=== PATIENT | female | born 1995 | race Caucasian/White ===

== ENCOUNTER 2022-02-13 10:54 | Outpatient (REF) | payer BC, SELFPAY ==
[2022-02-13 11:36] LABS: Hematocrit 43.1 % (37.0-47.0); Hemoglobin 14.6 g/dl (12.0-16.0); Mean Corpuscular HGB Conc 33.9 g/dl (31.0-35.0); Mean Corpuscular Hemoglobin 29.7 pg (27.0-33.0); Mean Corpuscular Volume 87.8 fL (80.0-98.0); Mean Platelet Volume 9.6 fL (9.4-12.3); Platelet Count 330 X10*3/uL (160-400); Red Blood Count 4.91 X10*6/uL (4.20-5.50); Red Cell Distribution Width 11.8 % (11.0-16.0); White Blood Count 6.7 X10*3/uL (4.8-10.8)
[2022-02-13 12:08] LABS: Alanine Aminotransferase 24 U/L (0-31); Albumin Level 4.4 g/dL (3.5-5.0); Alkaline Phosphatase 55 U/L (39-117); Anion Gap 13 (12-20); Aspartate Amino Transferase 17 U/L (5-31); Bilirubin Total 0.3 mg/dL (0.0-1.0); Blood Urea Nitrogen 11 mg/dL (9-16); Carbon Dioxide 24 mmol/L (22-29); Chloride 107 mmol/L (96-108); Estimated Glomerular Filt Rate > 60; Glucose Fasting 95 mg/dL (60-99); Potassium 4.9 mmol/L (3.3-5.1); Sodium 139 mmol/L (135-145); Total Protein 6.8 g/dL (6.5-8.0)
== END 2022-02-13 10:55 | disposition home or self-care (01) ==
LOC: HO.LAB 10:54
PROVIDERS: PCP Physician Assistant; Visit Provider Physician Assistant
DX: Z13.29 Encounter for screening for other suspected endocrine disorder (principal)
CPT/HCPCS: 36415; 80053; 84443; 85027

== ENCOUNTER 2022-09-30 08:47 | Outpatient (REF) | payer BC, SELFPAY ==
--- NOTE | ~2022-09-30 | XR_ITS ---
EXAMINATION: XR WRIST, LEFT XR HAND, LEFT CLINICAL INFORMATION: Pain COMPARISON: None available. TECHNIQUE: PA, lateral, and oblique views of the left wrist and PA, lateral, and oblique views of the left hand FINDINGS: LEFT WRIST: The bones and soft tissues are normal. No fracture. Alignment is anatomic. Joint spaces are maintained. No erosions or soft tissue calcifications. LEFT HAND: The bones and soft tissues are normal. No fracture. Alignment is anatomic. Joint spaces are maintained. No erosions or soft tissue calcifications. XR/XR hand wrist LT IMPRESSION: Normal left hand and wrist.
[2022-09-30 09:20] LABS: Hematocrit 44.3 % (37.0-47.0); Hemoglobin 14.8 g/dl (12.0-16.0); Mean Corpuscular HGB Conc 33.4 g/dl (31.0-35.0); Mean Corpuscular Hemoglobin 29.2 pg (27.0-33.0); Mean Corpuscular Volume 87.4 fL (80.0-98.0); Mean Platelet Volume 8.9 fL (9.4-12.3); Platelet Count 335 X10*3/uL (160-400); Red Blood Count 5.07 X10*6/uL (4.20-5.50); Red Cell Distribution Width 11.8 % (11.0-16.0); White Blood Count 8.4 X10*3/uL (4.8-10.8)
[2022-09-30 09:57] LABS: Alanine Aminotransferase 27 U/L (0-31); Albumin Level 4.4 g/dL (3.5-5.0); Alkaline Phosphatase 58 U/L (39-117); Anion Gap 10 (12-20); Aspartate Amino Transferase 17 U/L (5-31); Bilirubin Total 0.4 mg/dL (0.0-1.0); Blood Urea Nitrogen 10 mg/dL (9-16); Calcium 9.1 mg/dL (8.4-10.2); Carbon Dioxide 28 mmol/L (22-29); Chloride 108 mmol/L (96-108); Estimated Glomerular Filt Rate > 60; Glucose Fasting 84 mg/dL (60-99); Potassium 4.9 mmol/L (3.3-5.1); Sodium 141 mmol/L (135-145); Total Protein 6.7 g/dL (6.5-8.0)
== END 2022-09-30 08:48 | disposition home or self-care (01) ==
LOC: HO.LAB 08:47
PROVIDERS: PCP Physician Assistant; Visit Provider Physician Assistant
DX: Z13.29 Encounter for screening for other suspected endocrine disorder (principal); M77.8 Other enthesopathies, not elsewhere classified
CPT/HCPCS: 36415; 73110; 73130; 80053; 84443; 85027

== ENCOUNTER 2022-11-04 10:00 | Outpatient (RCR) | payer BC, SELFPAY ==
--- NOTE | 2022-10-02 07:57 | MHC.OT.EP ---
[address] [phone] Occupational Therapy Plan of Care Patient Name: Beverly Wood Date of Evaluation: 10/02/22 Diagnosis: Left wrist pain Pain Location: Pain free at rest 5/10 sharp/stabbing pain in left dorsal wrist Pressure/pain on volar wrist and sharp pain in dorsal wrist Pain Score: 5 Pain Scale Used: Numeric (0 - 10) Aggravating Factors: Pushing up, heavy lifting Alleviating Factors: No meds, trialed icing Assessment: 27 yo female w/ persistent left wrist pain over the past six months, saw PCP and x-ray was taken (still pending at this time) and advised to wear resting wrist orthosis. She has not purchased yet, but she has been referred to OT for continued assessment and management. On assessment, range and sensation are WFL, she does have decreased pass worker strength (35lb left versus 55lb right) and has pain w/ pushing up or with heavy pass worker. No significant laxity observed through testing, but signs and symptoms consistent w/ carpal strain. Frequency and Duration: The patient will be seen 2x/wk for 4 weeks Short Term Goals: Ind w/ Wrist Widget trial Ind w/ HEP Ind w/ use of heat/ice appropriately Physician Allergist Immunologist Goals: Pt to progress to modified piush-ups w/ ease while wearing wrist widget Left gross grasp >45lb Pt to demo B/L lift and carry 20lb w/ ease Pain free at night Treatment Plan: Therapeutic Exercise Therapeutic Activity Home Exercise Program Splinting Patient Education Desensitization/Sensory Re-ed ADL Training Ultrasound Iontophoresis Paraffin Fluidotherapy MHP Cold Packs Joint Mobilization Soft Tissue Mobilization Kinesiotaping Electronically Signed By: Comfort Bradford OTR/L CHT Please Sign and return to therapist. Thank you once again for your referral.
--- NOTE | 2022-11-04 10:47 | MHC.OT.DC ---
[address] [phone] F: [phone] Occupational Therapy Discharge Note Patient Name: Beverly Wood Provider: Rafa Rush Diagnosis: Left wrist pain Date of Surgery: Date of Evaluation: 10/02/22 Date of Discharge: 11/04/22 Treatments to Date: 7 Cancellations to Date: 0 No Shows to Date: 0 Discharge Status: Achieved Goals Improved Function Independent with HEP Discharge Summary: Improving pain. Low 3/10 4-5 times a day with Pt avoiding heavy lifting and pushing with her left hand as she is able. Significant increase in pain free profiler strength to WNL . She is following her with HEP and is independent in exercise and activity progression . Pt leaving for [facility] at the end of the month Goals met Electronically Signed By: Clary Mcconnell OT CHT CLT Reviewed/agree with student documentation: Therapist: Please Sign and return to therapist, thank you for your referral.
== END 2022-11-04 10:48 | disposition home or self-care (01) ==
LOC: HO.OT 10:00
PROVIDERS: PCP Physician Assistant; Visit Provider Physician Assistant
DX: M77.8 Other enthesopathies, not elsewhere classified (principal)
CPT/HCPCS: 29125; 97033; 97035; 97110; 97165; 97760

== ENCOUNTER 2023-06-22 07:55 | Outpatient (AMB) | payer BC, SELFPAY ==
[2023-06-22 08:07] VITALS: BP 110/70; PULSE 72; O2SAT 99; BMI 24.0
--- NOTE | 2023-06-22 08:07 | A.OFFPC_ITS ---
Vital Signs 06/22/23 08:07 Height 5 ft 2 in Weight 131 lb BMI 24.0 BP 110/70 Blood Pressure Location Lt brachial Position Sitting Pulse 72 Pulse Source Pulse Oximeter Pulse Oximetry (%) 99 Oxygen Delivery Method Room Air Intake Visit Reasons: Annual exam Intake Note: Patient here for an annual physical exam Outside Food Server Required: No Accompanied by: Self / Same As Patient Allergies No Known Allergies Allergy (Verified 06/22/23 08:13) Medication List - Last Reconciled 06/22/23 by Rafa Rush PA-C No Known Home Meds Tobacco use date assessed: 06/22/23 Dental Screening Dental Screen Date: 06/22/23 Did you have a dental visit in the last 12 months?: Yes Did you have a dental problem in the last 6 months where you did not have access to dental care?: No Was dental information given to patient?: Patient has dentist HPI Annual exam HPI Details Patient is a 28-year-old female here today for routine annual physical.? Patient has no significant past medical history. concerns--> none Depalletizer Operator: Sees DIRECTOR [facility] -has up-to-date Pap, has upcoming appointment 08/2023 Vaccines: UTD with FLu vaccine, UTD with COVID ( maderna), UTD Tdap PFSH Surgical History History of removal of skin mole Family History Family/Other No problems noted. Other Mental health disorder Social History Housing: House Alcohol intake: current Alcohol intake frequency: a few times a month Patient Tobacco Use Status: Never used Tobacco e-Cigarette/Vaping Use: Never Used Second Hand Smoke Exposure: No service: Yes Current occupational status: employed Current occupation: [employer] Current occupational exposures/hazards: No Cognitive needs: No Hearing needs: No Vision needs: No Questionnaire PHQ-9 Over the last 2 weeks, how often have you been bothered by any of the following problems? 1. Little interest or pleasure in doing things: not at all 2. Feeling down, depressed, or hopeless: not at all 3. Trouble falling or staying asleep, or sleeping too much: not at all 4. Feeling tired or having little energy: not at all 5. Poor appetite or overeating: not at all 6. Feeling bad about yourself - or that you are a failure or have let yourself or your family down: not at all 7. Trouble concentrating on things, such as reading the newspaper or watching television: not at all 8. Moving or speaking so slowly that other people could have noticed. Or the opposite - being so fidgety or restless that you have been moving around a lot more than usual: not at all 9. Thoughts that you would be better off or of hurting yourself in some way: not at all Total score: 0 Depression Screening Interpretation: Negative Depression Screening Done: Yes 26048 - PHQ-9 Billing: Yes Source: Developed by Drs. Donte Molina, [place] Ann, Yannick Hathaway and colleagues, with an educational gustavo from [employer]. Thrive Questionnaire Date Thrive assessed: 06/22/23 I am a: Patient What is your living situation today?: I have a steady place to live Within the past 12 months, did the food you bought not last and you didn't have the money to get more?: Never true Within the past 12 months, did you worry whether your food would run out before you got money to buy more?: Never true Do you have trouble paying for medicines?: No Do you have trouble getting transportation to medical appointments?: No Do you have trouble paying your heating and electricity bill?: No Do you have trouble taking care of your child, family member or friend?: No Do you have trouble with day-to-day activities such as bathing, preparing meals, shopping, managing finances, etc.?: No Are you currently unemployed and looking for a job?: No Are you interested in more education?: No Please select the resources that you would like help with: None Currently or been in a relationship where the following occur: no concerns reported AUDIT C Alcohol Use Questionnaire (AUDIT-C) 1. How often do you have a drink containing alcohol?: Monthly or less 2. How many drinks containing alcohol do you have on a typical day when you are drinking?: 1 or 2 3. How often do you have six or more drinks on one occasion?: Never Total Score: 1 CANDACE-7 AMB Questionnaire CANDACE-7 Date CANDACE - 7 assessed: 06/22/23 Feeling nervous, anxious, or on edge: 0 = Not at all Not being able to stop or control worryin = Not at all Worrying too much about different things: 0 = Not at all Trouble relaxin = Not at all Being so restless that it is hard to sit still: 0 = Not at all Becoming easily annoyed or irritable: 0 = Not at all Feeling afraid as if something awful might happen: 0 = Not at all Total CANDACE-7 score (0-4 normal; 5-9 mild; 10-14 moderate; 15-21 severe): 0 Source: Developed by Drs. Donte Molina, [place] Ann, Yannick Hathaway and colleagues, with an educational gustavo from [employer]. CANDACE-7 Assessment Billing CANDACE-7 Assessment Tool: CANDACE-7 Assessment 15544 Review of Systems Const Denies body aches, Denies chills, Denies excessive sweating, Denies fatigue, Denies fever(s) and Denies headache(s) Eyes Denies blurry vision ENT Denies dysphagia, Denies vertigo, Denies dizziness, Denies headache(s), Denies hearing loss and Denies tinnitus Card Denies chest pain, Denies chest pain with activity, Denies syncope, Denies irregular heart rhythm and Denies dyspnea Resp Denies chest congestion, Denies cough, Denies hemoptysis, Denies dyspnea and Denies wheezing GI Denies abdominal pain, Denies melena, Denies hematochezia, Denies coffee ground emesis, Denies dysphagia, Denies diarrhea, Denies nausea and Denies vomiting Denies urinary frequency, Denies dysuria, Denies urinary hesitancy and Denies urinary urgency Musc Denies arthralgias, Denies limited range of motion, Denies muscle cramps and Denies muscle weakness Skin/Breast Denies rash and Denies skin ulcer Neuro Denies Abnormal speech present, Denies confusion, Denies vertigo, Denies dizziness, Denies syncope, Denies headache(s), Denies memory loss and Denies seizure-like activity Psych Denies anxiety, Denies confusion, Denies depression, Denies memory loss, Denies panic attacks and Denies paranoia Endo Denies excessive sweating, Denies fatigue, Denies flushing, Denies polydipsia and Denies polyuria Aller/Immun Denies wheezing Physical exam (Primary Care) Vital Signs: Last Vital Signs Pulse 72 06/22/23 08:07 BP 110/70 06/22/23 08:07 Pulse Ox 99 06/22/23 08:07 Oxygen Delivery Method Room Air 06/22/23 08:07 BMI result Body Mass Index 24.0 Tobacco/Smoking Status: Tobacco use Status Tobacco use date assessed 06/22/23 06/22/23 08:13 Patient Tobacco Use Status Never used Tobacco 06/22/23 08:13 Tobacco use type 06/18/22 08:26 e-Cigarette/Vaping Use Never Used 06/22/23 08:13 PHQ-9: PHQ-9 Score PHQ-9: Total score 0 06/22/23 08:17 Depression Screening Interpretation: Negative Thrive Assessment: Date of Thrive Assessment Date Thrive assessed 06/22/23 06/22/23 08:13 Currently or been in a relationship where the following occur: no concerns reported Const General: cooperative, comfortable, no acute distress, alert and awake; No confusion Orientation/consciousness: oriented to person, oriented to place, patient oriented x3 and No confusion HENMT Head: Yes normocephalic Ears: external ears normal and TM's normal bilaterally Face and sinus: No sinus tenderness Mouth: Normal oral and palatal mucosa present and tongue normal Teeth and gingiva: dentition normal and gingiva normal Throat: Yes posterior oropharynx normal, Yes tonsils normal and Yes uvula midline Eyes Conjunctivae: conjunctivae normal Sclerae: sclerae normal Pupils: Equal, round and reactive pupils present EOM: EOMs intact bilaterally Direct Ophthalmoscopy: No no photophobia Neck Neck: Yes no lymphadenopathy, No tender and Yes no JVD Thyroid: Thyroid normal Carotids: no bruits Chest Chest palpation & inspection: no tenderness Resp Effort & Inspection: normal respiratory effort, no audible wheezes, not labored and no stridor Auscultation: no crackles, no rales, no rhonchi and no wheezes Cardio Jugular venous distension: no JVD Rate: regular rate, not bradycardic and not tachycardic Rhythm: regular rhythm Bruits: no carotid bruits Peripheral pulses: Peripheral pulses 2+ throughout GI Inspection: Yes normal to inspection, No abdominal wall ecchymosis and No visible herniation Palpation (GI): Soft to palpation, nontender, no guarding, not rigid and No hepatosplenomegaly present Auscultation: normoactive bowel sounds General: Yes no CVA tenderness Back/Spine/Pelvis Back: no CVA tenderness and No back tenderness Cervical Spine: cervical ROM normal Thoracic/Lumbar Spine: thoracic and lumbar spine normal to inspection, straight leg raise negative bilaterally, No thoraco-lumbar ROM limited and No lumbar spinal tenderness Skin Lesions: no lesions Rashes: no rashes Wounds: no wounds Neuro General: oriented to person, oriented to place, patient oriented x3, CN's II-XI intact bilaterally and No confusion Cranial nerves: Yes Equal, round and reactive pupils present and Yes Normal accommodation reflex present Cognition (Neuro): normal cognition Speech: No Abnormal speech present Gait exam (Neuro): Normal gait present Motor exam (neuro): 5/5 motor strength present throughout Extrem Right upper extremity: full ROM; no cyanosis Left upper extremity: full ROM; no cyanosis Right lower extremity: no edema Left lower extremity: no edema Psych Appearance: grossly normal Mental Status: mental status grossly normal Affect: normal affect Attitude: cooperative Thought process: Normal thought process present Assessment and Plan Assessment & Plan (1) Annual physical exam: Code(s): Z00.00 - Encounter for general adult medical examination without abnormal findings (2) Screening for diabetes mellitus (DM): Code(s): Z13.1 - Encounter for screening for diabetes mellitus Orders: Orders Comprehensive [place]. Panel Fast Today Z13.1 - Encounter for screening for diabetes mellitus Coding Level of Care Code Est Pt Prev Care 18-39y(99934) Diagnoses Annual physical exam Z00.00 Screening for diabetes mellitus (DM) Z13.1 Additional Codes CANDACE-7 Assessment Billing - CANDACE-7 Assessment Tool: CANDACE-7 Assessment 56006 ( [id number])
== END 2023-06-22 08:25 | disposition home or self-care (01) ==
PROVIDERS: Visit Provider Physician Assistant
DX: Z00.00 Encounter for general adult medical examination without abnormal findings (principal); Z13.1 Encounter for screening for diabetes mellitus
CPT/HCPCS: 99395

== ENCOUNTER 2023-10-04 17:08 | Outpatient (AMB) | payer OTHER, SELFPAY ==
[2023-10-04 17:11] VITALS: BP 112/68; PULSE 80; O2SAT 98; BMI 24.9
--- NOTE | 2023-10-04 17:11 | MHC.PC.OV ---
Vital Signs 10/04/23 17:11 Height 5 ft 2 in Weight 136 lb BMI 24.9 BP 112/68 Blood Pressure Location Lt brachial Position Sitting Pulse 80 Pulse Source Pulse Oximeter Pulse Oximetry (%) 98 Oxygen Delivery Method Room Air Intake Visit Reasons: Transfer Of Care from Dr. Rush ( referrals ) Automobile Travel Club Counselor Required: No Accompanied by: Self / Same As Patient Allergies No Known Allergies Allergy (Verified 10/04/23 17:23) Medication List - Last Reconciled 10/04/23 by Valentina Dykes MD No Known Home Meds Tobacco use date assessed: 10/04/23 Dental Screening Dental Screen Date: 10/04/23 Did you have a dental visit in the last 12 months?: Yes Did you have a dental problem in the last 6 months where you did not have access to dental care?: No Was dental information given to patient?: Patient has dentist HPI HPI Comments History of Present Illness Details This is a 28-year-old female that complains of multiple skin moles and used to see Dermatology for this matter and would like to reestablish with Dr. Razo. She also complains of left wrist pain that was present last year and it did improve but recently came back. This wrist pain is triggered by wrist extension. She has no other acute complaints. [facility] Surgical History History of removal of skin mole Family History Family/Other No problems noted. Other Mental health disorder Social History Housing: House Alcohol intake: current Alcohol intake frequency: a few times a month Patient Tobacco Use Status: Never used Tobacco e-Cigarette/Vaping Use: Never Used Second Hand Smoke Exposure: No service: Yes Current occupational status: employed Current occupation: [employer] Current occupational exposures/hazards: No Cognitive needs: No Hearing needs: No Vision needs: No Questionnaire PHQ-9 Over the last 2 weeks, how often have you been bothered by any of the following problems? 1. Little interest or pleasure in doing things: not at all 2. Feeling down, depressed, or hopeless: not at all 3. Trouble falling or staying asleep, or sleeping too much: not at all 4. Feeling tired or having little energy: not at all 5. Poor appetite or overeating: not at all 6. Feeling bad about yourself - or that you are a failure or have let yourself or your family down: not at all 7. Trouble concentrating on things, such as reading the newspaper or watching television: not at all 8. Moving or speaking so slowly that other people could have noticed. Or the opposite - being so fidgety or restless that you have been moving around a lot more than usual: not at all 9. Thoughts that you would be better off or of hurting yourself in some way: not at all Total score: 0 Depression Screening Interpretation: Negative Depression Screening Done: Yes 98181 - PHQ-9 Billing: Yes Source: Developed by Drs. Donte Molina, [place] Ann, Yannick Hathaway and colleagues, with an educational gustavo from [employer]. Thrive Questionnaire Date Thrive assessed: 10/04/23 I am a: Patient What is your living situation today?: I have a steady place to live Within the past 12 months, did the food you bought not last and you didn't have the money to get more?: Never true Within the past 12 months, did you worry whether your food would run out before you got money to buy more?: Never true Do you have trouble paying for medicines?: No Do you have trouble getting transportation to medical appointments?: No Do you have trouble paying your heating and electricity bill?: No Do you have trouble taking care of your child, family member or friend?: No Do you have trouble with day-to-day activities such as bathing, preparing meals, shopping, managing finances, etc.?: No Are you currently unemployed and looking for a job?: No Are you interested in more education?: No Please select the resources that you would like help with: None Currently or been in a relationship where the following occur: no concerns reported THRIVE Score: 0 AUDIT C Alcohol Use Questionnaire (AUDIT-C) 1. How often do you have a drink containing alcohol?: Monthly or less 2. How many drinks containing alcohol do you have on a typical day when you are drinking?: 1 or 2 3. How often do you have six or more drinks on one occasion?: Never Total Score: 1 Score Reviewed/Action Taken: No CANDACE-7 AMB Questionnaire CANDACE-7 Date CANDACE - 7 assessed: 06/22/23 Source: Developed by Drs. Donte Molina, [place] Ann, Yannick Hathaway and colleagues, with an educational gustavo from [employer]. Review of Systems Const All systems reviewed & are unremarkable except as noted in HPI and below Eyes Reports no additional complaints, Denies change in vision and Denies other visual disturbances Card Denies chest pain at rest, Denies chest pain with activity, Denies edema, Denies irregular heart rhythm, Denies claudication, Denies dyspnea, Denies dyspnea on exertion, Denies orthopnea, Denies paroxysmal nocturnal dyspnea and Denies slow heart rate Resp Denies cough, Denies dyspnea and Denies dyspnea on exertion Skin/Breast Reports lesions Physical exam (Primary Care) Vital Signs: Last Vital Signs Pulse 80 10/04/23 17:11 BP 112/68 10/04/23 17:11 Pulse Ox 98 10/04/23 17:11 Oxygen Delivery Method Room Air 10/04/23 17:11 BMI result Body Mass Index 24.9 Tobacco/Smoking Status: Tobacco use Status Tobacco use date assessed 10/04/23 10/04/23 17:14 Patient Tobacco Use Status Never used Tobacco 10/04/23 17:14 Tobacco use type 06/18/22 08:26 e-Cigarette/Vaping Use Never Used 10/04/23 17:14 PHQ-9: PHQ-9 Score PHQ-9: Total score 0 10/04/23 17:26 Depression Screening Interpretation: Negative Thrive Assessment: Date of Thrive Assessment Date Thrive assessed 10/04/23 10/04/23 17:14 Currently or been in a relationship where the following occur: no concerns reported Resp Effort & Inspection: normal respiratory effort Auscultation: clear to auscultation bilaterally Cardio Jugular venous distension: no JVD Rate: regular rate Rhythm: regular rhythm Heart sounds: S1 normal heart sound present and S2 normal heart sound present Skin Lesions: lesion noted Extrem General: Yes full ROM Assessment and Plan Assessment & Plan (1) Skin mole: Code(s): D22.9 - Melanocytic nevi, unspecified Plan: Referred to dermatology. (2) Left wrist pain: Code(s): M25.532 - Pain in left wrist Plan: Referred to Ortho. 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
== END 2023-10-04 17:35 | disposition home or self-care (01) ==
PROVIDERS: PCP Physician Assistant; Visit Provider Internal Medicine
DX: D22.9 Melanocytic nevi, unspecified (principal); M25.532 Pain in left wrist
CPT/HCPCS: 99213

== ENCOUNTER 2024-01-20 08:23 | Outpatient (AMB) | payer OTHER, SELFPAY ==
--- NOTE | 2024-01-20 08:26 | A.OFFVIS_ITS ---
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 Cintron. Patient states she has left wrist pain that has been present since last August last year. This wrist pain is triggered by wrist extension when pushing off chair, doing push ups, etc. Hand/wrist x-ray done . She was sent to OT for this but could not keep going due to insurance and her having to go to [place]. 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 She has been having some numbness and tingling in the morning but thinks it may be from her sleeping wrong. She was seen in [place] in December of 2023 by a doctor and a senior software engineer who both state she has a ganglion cyst. Patient expresses senior software engineer did not feel comfortable treating this due to placement. She has been avoiding activity that involved wrist extension to avoid pain. Denies recent injury. Pt brought in medical documentation from visits in [place]. Allergies No Known Allergies Allergy (Verified 01/20/24 08:37) Medication List - Last Reconciled 01/20/24 by Catina Davey MD No Known Home Meds HPI Comments Details: Thinks the pain is coming dorsal wrist where ganglion cyst is, especially when she pushes up from a chair. First noticed it 2 months ago. But pain started August 2022. Numbness when she wakes up, described as pins/needles, more the palmar. Visit note from dermatology - dx of ganglion cyst left radial dorsal wrist. US 12/28/23 - ganglion cyst 1.7cm over unspecified carpal joint of dorsal left wrist. [facility], [facility] Medical History (Updated 01/20/24 @ 08:54 by Catina Davey MD) Ganglion cyst of dorsum of left wrist Surgical History History of removal of skin mole Family History Family/Other No problems noted. 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 MSK: 1 cm ganglion cyst left dorsal wrist. Nontender to touch. Soft. No redness. No joint effusion noted. No deformity noted. No intrinsic hand weakness noted. No atrophy noted. Damari test negative. Carpal compression test negative. Tinel sign negative. Strength is 5/5 in all muscle groups tested. No increased tone noted. Neurological: Neurologic examination of the upper and lower extremities was nonfocal with intact sensation, muscle stretch reflexes and without focal motor deficits . Kuhn?s negative bilaterally. Gait is non-antalgic without loss of balance. Results Reviewed Results Reviewed: Ordering Physician: Rafa Rush PA-C Date of Service: 09/30/22 Procedure(s): XR hand wrist LT Accession Number(s): [id number] cc: Rafa Rush PA-C~ EXAMINATION: XR WRIST, LEFT XR HAND, LEFT CLINICAL INFORMATION: Pain COMPARISON: None available. TECHNIQUE: PA, lateral, and oblique views of the left wrist and PA, lateral, and oblique views of the left hand FINDINGS: LEFT WRIST: The bones and soft tissues are normal. No fracture. Alignment is anatomic. Joint spaces are maintained. No erosions or soft tissue calcifications. LEFT HAND: The bones and soft tissues are normal. No fracture. Alignment is anatomic. Joint spaces are maintained. No erosions or soft tissue calcifications. XR/XR hand wrist LT IMPRESSION: Normal left hand and wrist. I reviewed records from the following: Reviewed notes from [place] senior software engineer. Reviewed ultrasound results from [place]. See above. Assessment & Plan Assessment & Plan (1) Ganglion cyst of dorsum of left wrist: Code(s): M67.432 - Ganglion, left wrist Category: Medical (2) Numbness of left hand: Code(s): R20.0 - Anesthesia of skin Category: Medical Plan We will referred to Dr. Cortez for surgical management of ganglion cyst. Patient eager to proceed. We will schedule this month. As for hand numbness, she only has this when she wakes up in the morning. No cl inical signs of Carpal Tunnel Syndrome today. She has been wearing wrist splints at night except that sometimes it rubs on the ganglion cyst. Encouraged to still wear wrist splints at night as tolerated. If hand numbness persist or become more constant, we will consider EMG. Assessment and plan discussed with patient, and patient was agreeable. All questions were answered thoroughly. Catina Davey MD, SABINE Board Certified, [place] [employer] and Rehabilitation (ABPMR) Board Certified, [place] Board of Electrodiagnostic Medicine (ABEM) Coding Level of Care Code New Pt Level 4 (46233) Diagnoses Ganglion cyst of dorsum of left wrist M67.432 Numbness of left hand R20.0
== END 2024-01-20 08:58 | disposition home or self-care (01) ==
PROVIDERS: PCP Physician Assistant; Referring Provider Physician Assistant; Visit Provider Physical Medicine & Rehabilitation
DX: M67.432 Ganglion, left wrist (principal); R20.0 Anesthesia of skin
CPT/HCPCS: 99204

== ENCOUNTER → 2024-01-20 08:23 | Outpatient (BNVA) | payer OTHER, SELFPAY | PROVIDERS: PCP Physician Assistant; Visit Provider Physical Medicine & Rehabilitation | DX: M67.432 Ganglion, left wrist (principal); R20.0 Anesthesia of skin | CPT/HCPCS: 99202 ==

== ENCOUNTER 2024-02-08 15:13 | Outpatient (AMB) | payer OTHER, SELFPAY ==
[2024-02-08 15:24] VITALS: BMI 24.9
--- NOTE | 2024-02-08 15:24 | MHC.OFFVIS ---
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 Patient describes pain as uneasy while working without numbness and/or tingling. Patient shares that cyst has decreased in size, but has a popping sensation when wrist is over worked. Patient would like to discuss surgery today. 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 She complains of a mass on the dorsal aspect of her wrist, along with pain. She says she first noticed this in ~08/2022, with intermittent pain with use of her wrist. She says this mass has changed in size in the last few months, and has grown smaller in the last week She is unsure if she has popped this mass in the last few days while closing sa heavy drawer. She says she feels a painful popping sensation in her wrist when she hyperextends and places her wrist under load, such as doing a push-up or handstand. She says when she was in [place] the mass was ~2cm in diameter at its largest. 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 [facility] Medical History (Updated 01/20/24 @ 08:54 by Catina Davey MD) Ganglion cyst of dorsum of left wrist Surgical History History of removal of skin mole Family History Family/Other No problems noted. 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 Current occupational exposures/hazards: No Cognitive needs: No Hearing needs: No Vision needs: No Review of Systems Const All systems reviewed & are unremarkable except as noted in HPI and below Physical Exam Vital Signs: BMI result Body Mass Index 24.9 Const General: cooperative, healthy appearing and no acute distress Orientation/consciousness: patient oriented x3 HEENT Head: Yes normocephalic and Yes atraumatic Eyes EOM: EOMs intact bilaterally Resp Effort & Inspection: normal respiratory effort and able to speak in complete sentences Cardio Jugular venous distension: no JVD Skin General skin exam: turgor normal Rashes: no rashes Neuro General: patient oriented x3 Extrem Other: Evaluation of Left Upper Extremity: The patient is alert, oriented, and in no acute distress Neuro: Median, Ulnar, Radial nerves motor and sensory intact and sensation is normal to the tips of all digits Vascular: Cap refill brisk ROM: She can make a fist and extend all her digits No locking or catching Skin: No lacerations or abrasions. General: No Ecchymosis. No Erythema or evidence of infection. With her wrist in flexion, there is a palpable mass measuring ~4-5mm in diameter over the dorsal radial wrist, just radial to the capitate. This has decreased in size in the last week, and she may have ruptured this at home. It is barely visible or palpable. Radiographs: 3 views of the left wrist from 09/30/22 were reviewed by me today in clinic. they show no fractures, dislocations, or arthritic changes. Psych Appearance: grossly normal Affect: normal affect Attitude: cooperative Assessment & Plan Assessment & Plan (1) Ganglion cyst of dorsum of left wrist: Code(s): M67.432 - Ganglion, left wrist Category: Medical (2) Left wrist pain: Code(s): M25.532 - Pain in left wrist Category: Medical Plan Assessment & Plan: 1. Left dorsal wrist ganglion cyst With her wrist in flexion, measuring ~4-5mm in diameter over the dorsal radial wrist, just radial to the capitate I educated her about this condition I discussed operative and non-operative treatment options This has decreased in size in the last week, and she may have ruptured this at home I explained that the mass needs to be larger and visible in order to proceed with surgery, and currently it is too small to consider operative maagement If her symptoms increase in severity she can follow up to discuss treatment options She can follow up prn Scribed for Bhargavi Cortez MD by Jose Tomlinson, medical certification specialist, on 02/08/24 at 4:15 PM, EST. Coding Level of Care Code New Pt Level 3 (75713) Diagnoses Ganglion cyst of dorsum of left wrist M67.432 Left wrist pain M25.532
== END 2024-02-08 16:35 | disposition home or self-care (01) ==
PROVIDERS: PCP Physician Assistant; Visit Provider Orthopaedic Surgery
DX: M67.432 Ganglion, left wrist (principal); M25.532 Pain in left wrist
CPT/HCPCS: 99213

== ENCOUNTER → 2024-02-08 15:13 | Outpatient (BNVA) | payer OTHER, SELFPAY | PROVIDERS: PCP Physician Assistant; Visit Provider Orthopaedic Surgery | DX: M67.432 Ganglion, left wrist (principal); M25.532 Pain in left wrist | CPT/HCPCS: 99212 ==

== ENCOUNTER 2025-01-16 12:13 | Outpatient (AMB) | payer BC, SELFPAY ==
--- NOTE | 2025-01-16 12:28 | A.OFFPC_ITS ---
Vital Signs 01/16/25 12:29 Height 5 ft 2 in Weight 136 lb BMI 24.9 BP 116/60 Blood Pressure Location Lt brachial Position Sitting Intake Visit Reasons: annual exam Intake Note: Patient here for an annual physical exam Rn Hemodialysis Charge Required: No Accompanied by: Self / Same As Patient Allergies No Known Allergies Allergy (Verified 01/16/25 12:33) Medication List - Last Reconciled 01/16/25 by Valentina Dykes MD No Known Home Meds Tobacco use date assessed: 01/16/25 Dental Screening Dental Screen Date: 01/16/25 Did you have a dental visit in the last 12 months?: Yes Did you have a dental problem in the last 6 months where you did not have access to dental care?: No Was dental information given to patient?: Patient has dentist HPI HPI Comments History of Present Illness Details The patient is a 29-year-old female presenting for a physical exam. She denies any medical complaints and reports having received a vaccination in 2015, with another administered in 2022. Pap smear up-to-date. No acute complaints. [facility] Medical History Ganglion cyst of dorsum of left wrist Surgical History History of removal of skin mole Family History Family/Other No problems noted. Father No problems noted. Mother No problems noted. 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 1. Little interest or pleasure in doing things: not at all 2. Feeling down, depressed, or hopeless: not at all 3. Trouble falling or staying asleep, or sleeping too much: not at all 4. Feeling tired or having little energy: not at all 5. Poor appetite or overeating: not at all 6. Feeling bad about yourself - or that you are a failure or have let yourself or your family down: not at all 7. Trouble concentrating on things, such as reading the newspaper or watching television: not at all 8. Moving or speaking so slowly that other people could have noticed. Or the opposite - being so fidgety or restless that you have been moving around a lot more than usual: not at all 9. Thoughts that you would be better off or of hurting yourself in some way: not at all Total score: 0 Depression Screening Interpretation: Negative Depression Screening Done: Yes 69037 - PHQ-9 Billing: Yes Source: Developed by Drs. Donte Molina, [place] Ann, Yannick Hathaway and colleagues, with an educational gustavo from [employer]. Thrive Questionnaire Date Thrive assessed: 01/09/25 I am a: Patient What is your living situation today?: I have a steady place to live Within the past 12 months, did the food you bought not last and you didn't have the money to get more?: Never true Within the past 12 months, did you worry whether your food would run out before you got money to buy more?: Never true Do you have trouble paying for medicines?: No Do you have trouble getting transportation to medical appointments?: No Do you have trouble paying your heating and electricity bill?: No Do you have trouble taking care of your child, family member or friend?: No Do you have trouble with day-to-day activities such as bathing, preparing meals, shopping, managing finances, etc.?: No Are you currently unemployed and looking for a job?: No Are you interested in more education?: No Please select the resources that you would like help with: None Currently or been in a relationship where the following occur: No concerns reported THRIVE Score: 0 AUDIT C Alcohol Use Questionnaire (AUDIT-C) 1. How often do you have a drink containing alcohol?: Monthly or less 2. How many drinks containing alcohol do you have on a typical day when you are drinking?: 3 or 4 3. How often do you have six or more drinks on one occasion?: Never Total Score: 2 Score Reviewed/Action Taken: No CANDACE-7 AMB Questionnaire CANDACE-7 Date CANDACE - 7 assessed: 01/16/25 Feeling nervous, anxious, or on edge: 0 = Not at all Not being able to stop or control worryin = Not at all Worrying too much about different things: 0 = Not at all Trouble relaxin = Not at all Being so restless that it is hard to sit still: 0 = Not at all Becoming easily annoyed or irritable: 0 = Not at all Feeling afraid as if something awful might happen: 0 = Not at all Total CANDACE-7 score (0-4 normal; 5-9 mild; 10-14 moderate; 15-21 severe): 0 Source: Developed by Drs. Donte Molina, [place] Ann, Yannick Hathaway and colleagues, with an educational gustavo from [employer]. CANDACE-7 Assessment Billing CANDACE-7 Assessment Tool: CANDACE-7 Assessment 72065 Review of Systems Const All systems reviewed & are unremarkable except as noted in HPI and below Card Denies chest pain at rest, Denies chest pain with activity, Denies edema, Denies irregular heart rhythm, Denies claudication, Denies dyspnea, Denies dyspnea on exertion, Denies orthopnea, Denies paroxysmal nocturnal dyspnea and Denies slow heart rate Resp Denies cough, Denies dyspnea and Denies dyspnea on exertion GI Denies abdominal pain, Denies change in bowel habits, Denies excessive flatus, Denies nausea and Denies vomiting Physical exam (Primary Care) Vital Signs: Last Vital Signs BP 116/60 01/16/25 12:29 BMI result Body Mass Index 24.9 Tobacco/Smoking Status: Tobacco use Status Tobacco use date assessed 10/04/23 10/04/23 17:14 Patient Tobacco Use Status Never used Tobacco 01/20/24 08:38 Tobacco use type 06/18/22 08:26 e-Cigarette/Vaping Use Never Used 01/20/24 08:38 Depression Screening Interpretation: Negative Thrive Assessment: Date of Thrive Assessment Date Thrive assessed 01/09/25 01/09/25 13:10 Currently or been in a relationship where the following occur: No concerns reported HENMT Head: Yes normal to inspection, Yes normocephalic and Yes atraumatic Ears: external ears normal Eyes General: appearance normal, both eyes and all related structures Eyelids: Yes eyelids normal Conjunctivae: conjunctivae normal Neck Neck: Yes normal visual inspection and Yes supple Resp Effort & Inspection: normal respiratory effort Auscultation: clear to auscultation bilaterally Cardio Jugular venous distension: no JVD Rate: regular rate Rhythm: regular rhythm Heart sounds: S1 normal heart sound present and S2 normal heart sound present GI Inspection: Yes normal to inspection Palpation (GI): Soft to palpation and nontender Auscultation: normal bowel sounds Skin General skin exam: no rashes or lesions noted Neuro General: no focal motor deficits Extrem General: Yes full ROM Psych Appearance: grossly normal Coding Level of Care Code Est Pt Prev Care 18-39y(46953) Diagnoses Annual physical exam Z00.00 Additional Codes PHQ-9 - 99674 - PHQ-9 Billing: Yes ([id number]) CANDACE-7 Assessment Billing - ACNDACE-7 Assessment Tool: CANDACE-7 Assessment 25370 ([id number]) Time Spent (min) 30 Assessment & Plan Assessment & Plan (1) Annual physical exam: Code(s): Z00.00 - Encounter for general adult medical examination without abnormal findings Category: Medical Plan Repeat in a year. Orders: Orders Lipid Panel Today E78.5 - Hyperlipidemia, unspecified Comprehensive [place]. Panel Fast Today Z00.00 - Encounter for general adult medical examination without abnormal findings
[2025-01-16 12:29] VITALS: BP 116/60; BMI 24.9
--- OUTSIDE RECORDS SUMMARY | 2025-01-16 12:54 | XMS_ITS | Continuity of Care Document ---
Author Name [facility] Organization [facility] Care Team Providers Care Trim Setter Helper Name Role Phone [facility] Unavailable Unavailable Problems Combined list of problems from Department of Defense and Veterans Affairs facilities. It does not include entries that were removed or entered in error. Problem Status Onset Date Problem Type Date of Resolution Comments Source Right knee pain Active Condition 0113C- AF-C-82 nd [facility] [facility] Medications Combined list of outpatient medications from Department of Defense and Veterans Affairs facilities.Medications provided include 1) outpatient medications from the last 15 months, and 2) patient-reported medications. Medication Details Route Status Patient Instructions Prescription Expires Prescription Number Last Dispense Date Ordering Provider Order Date Order Qty Source Multivitami n oral capsule Oral, Daily, 0 total refill(s ), Maintena nce Oral (given by mouth) Ordered 2023 0113C-A F-C-82n d [facility] [place] Allergies, Adverse Reactions, Alerts Combined list of allergies from Department of Defense and Veterans Affairs facilities. It does not include entries that were removed or entered in error. Substance Category Reaction Severity Reaction type Status Date Reported Comments Source No Known Allergies Drug allergy (disorder) active 05/27/2016 [place] [address] Immunizations Combined list of available immunizations from the Department of Defense and Veterans Affairs facilities. Immunization Series Date Given Administered By Site Reaction Lot Number CVX Code Drug Sales Strategy Manager Status Comments Source influenza virus vaccine, inactivated 2023 MARCI Pennington laurel, left (delt oid) [id number] [employer], [employer] complet ed influenza virus vaccine, inactivat ed 04/19/24 Given 8203R-1 04 MDG human papilloma virus vaccine, quadrivalent 2 2021 [id number] Merck (MSD) complet ed human papilloma virus vaccine, quadrival ent DoD HPV, unspecified formulation 1 2021 [id number] 137 Merck (MSD) complet ed HPV, unspecifi ed formulati on DoD influenza, injectable, quadrivalent, contains preservative 0 2021 [id number] 158 [facility] (SKB) complet ed influenza , injectabl e, quadrival ent, contains preservat caitie DoD influenza, injectable, quadrivalent 2020 [id number] 158 [facility] ed influenza , injectabl e, quadrival ent 03/26/21 Given Ambulat ory Pharmac y influenza, injectable, quadrivalent, contains preservative 6 2020 [id number] 158 [facility] (SKB) complet ed influenza , injectabl e, quadrival ent, contains preservat caitie DoD SARS-COV-2 (COVID-19) vaccine, UNSPECIFIED 0 2020 213 () Not Given SARS-COV- 2 (COVID-19 ) vaccine, UNSPECIFI ED DoD COVID Vaccine Moderna 2020 [id number] complet ed COVID Vaccine Moderna 09/17/20 Given Ambulat ory Pharmac y SARS-COV-2 (COVID-19) vaccine, mRNA, spike protein, LNP, preservative free, 100 mcg or 50 mcg dose 2 2020 [id number] 207 Moderna US, Inc. (MOD) complet ed SARS-COV- 2 (COVID-19 ) vaccine, mRNA, spike protein, LNP, preservat caitie free, 100 mcg or 50 mcg dose DoD COVID Vaccine Moderna 2020 [id number] 207 complet ed COVID Vaccine Moderna 08/24/20 Given Ambulat ory Pharmac y SARS-COV-2 (COVID-19) vaccine, mRNA, spike protein, LNP, preservative free, 100 mcg or 50 mcg dose 1 2020 [id number] 207 Moderna [employer], Inc. (MOD) complet ed SARS-COV- 2 (COVID-19 ) vaccine, mRNA, spike protein, LNP, preservat caitie free, 100 mcg or 50 mcg dose DoD influenza, seasonal, injectable 2019 [id number] 141 complet ed influenza , seasonal, injectabl e 04/05/20 Given Ambulat ory Pharmac y Influenza, seasonal, injectable 1 2019 [id number] 21 141 Transcribed (TRS) complet ed Influenza , seasonal, injectabl e DoD influenza, injectable, quadrivalent- pf 2018 [id number] 150 Se[employer] complet ed influenza , injectabl e, quadrival ent-pf 05/20/19 Given Ambulat ory Pharmac y Influenza, injectable, quadrivalent, preservative free 0 2018 [id number] 507 150 Se[employer]irus (SEQ) complet ed Influenza , injectabl e, quadrival ent, preservat caitie free DoD influenza, seasonal, injectable 2017 [id number] 141 [employer] complet ed influenza , seasonal, injectabl e 04/22/18 Given Ambulat ory Pharmac y Influenza, seasonal, injectable 1 2017 [id number] 141 [employer] (SEQ) comple t ed Influenza , seasonal, injectabl e DoD hepatitis B adult vaccine 2016 [id number] Merck & Company Inc complet ed hepatitis B adult vaccine 03/02/17 Given Ambulat ory Pharmac y influenza virus vaccine, inactivated 2016 [id number] 88 Se[employer] complet ed influenza virus vaccine, inactivat ed 03/02/17 Given Ambulat ory Pharmac y hepatitis B vaccine, adult dosage 2 2016 [id number] 43 Merck (MSD) complet ed hepatitis B vaccine, adult dosage DoD Influenza, injectable, Madin Elenita Canine Kidney, quadrivalent with preservative 2 2016 [id number] 186 Seqirus (SEQ) comple t ed Influenza , injectabl e, Madin Elenita Canine Kidney, quadrival ent with preservat caitie DoD hepatitis B pediatric/ado lescent 2016 [id number] 08 GlaxoSmithKli ne complet ed hepatitis B pediatric /adolesce nt 07/06/16 Given Ambulat ory Pharmac y measles/mumps /rubella virus vaccine 2016 [id number] 03 Merck & Company Inc complet ed measles/m umps/rube lla virus vaccine 07/06/16 Given Ambulat ory Pharmac y measles, mumps and rubella virus vaccine 2 2016 [id number] 03 Merck (MSD) complet ed measles, mumps and rubella virus vaccine DoD hepatitis B vaccine, pediatric or pediatric/ado lescent dosage 1 2016 [id number] 08 FookyZine (B) complet ed hepatitis B vaccine, pediatric or pediatric /adolesce nt dosage DoD adenovirus vaccine, live 2015 [id number] 2 143 Teva Pharmaceutica ls complet ed adenoviru s vaccine, live 05/26/16 Given Ambulat ory Pharmac y hepatitis B pediatric/ado lescent 2015 [id number] 08 GlaxoSmithKli ne complet ed hepatitis B pediatric /adolesce nt 05/26/16 Given Ambulat ory Pharmac y measles/mumps /rubella virus vaccine 2015 [id number] 03 Merck & Company Inc complet ed measles/m umps/rube lla virus vaccine 05/26/16 Given Ambulat ory Pharmac y measles, mumps and rubella virus vaccine 1 2015 [id number] 03 Merck (MSD) complet ed measles, mumps and rubella virus vaccine DoD hepatitis B vaccine, pediatric or pediatric/ado lescent dosage 1 2015 [id number] 08 [employer] (SKB) complet ed hepatitis B vaccine, pediatric or pediatric /adolesce nt dosage DoD Adenovirus, type 4 and type 7, live, oral 1 2015 [id number] 2 143 [facility] (BRR) complet ed Adenoviru s, type 4 and type 7, live, oral DoD tuberculin purified protein derivative 2015 [id number] 96 sanofi pasteur complet ed tuberculi n purified protein derivativ e 05/22/16 Given Ambulat ory Pharmac y influenza, seasonal, injectable-pf 2015 [id number] 140 Seqirus complet ed influenza , seasonal, injectabl e-pf 05/22/16 Given Ambulat ory Pharmac y tetanus, diphtheria, acellular pertu is 2015 [id number] 115 GlaxoSmithKli ne complet ed tetanus, diphtheri a, acellular pertussis 05/22/16 Given Ambulat ory Pharmac y meningococcal A,C,Y,W-135 (MCV4P) 2015 [id number] 114 sanofi pasteur complet ed meningoco ccal A,C,Y,W-1 35 (MCV4P) 05/22/16 Given Ambulat ory Pharmac y poliovirus vaccine, inactivated 2015 [id number] 10 sanofi pasteur complet ed polioviru s vaccine, inactivat ed 05/22/16 Given Ambulat ory Pharmac y poliovirus vaccine, inactivated 1 2015 [id number] 10 Sanofi Pasteur (PMC) complet ed polioviru s vaccine, inactivat ed DoD meningococcal polysaccharid e (groups A, C, Y and W-135) diphtheria toxoid conjugate vaccine (MCV4P) 1 2015 [id number] 114 Sanofi Pasteur (PMC) complet ed meningoco ccal polysacch aride (groups A, C, Y and W-135) diphtheri a toxoid conjugate vaccine (MCV4P) DoD tetanus toxoid, reduced diphtheria toxoid, and acellular pertu is vaccine, adsorbed 1 2015 [id number] 115 [employer] (SKB) complet ed tetanus toxoid, reduced diphtheri a toxoid, and acellular pertussis vaccine, adsorbed DoD Influenza, seasonal, injectable, preservative free 1 2015 [id number] 140 Seqirus (SEQ) comple t ed Influenza , seasonal, injectabl e, preservat caitie free DoD mumps virus vaccine 0 2015 07 () Not Given mumps virus vaccine DoD varicella virus vaccine 0 2015 21 () Not Given varicella virus vaccine DoD hepatitis A vaccine, adult dosage 0 2015 52 () Not Given hepatitis A vaccine, adult dosage DoD Results Combined list of recent chemistry, hematology and other laboratory results from Department of Defense and Veterans Affairs, ranging from 15 months to all on record, depending upon the facility. Order Name Results Value Reference Range Date Interpretation Specimen Comments Source Infectiou s Disease HIV-1/O/2 Non-Reac tive 1 (09/15/24 10:00 AM) 09/15 N Interpretiv e Data: INTERPRETAT ION: This method is a screening procedure for the detection of HIV p24 Antigen and Antibodies to HIV-1, including Group O, and/or HIV-2. NON-REACTIV E: HIV-1 antigen and HIV-1 / HIV-2 antibodies were not detected. No laboratory evidence of HIV infection. A negative test result does not exclude the possibility of exposure to or infection with HIV. HIV antibodies and/or p24 antigen may be undetectabl e in some stages of the infection and in some clinical conditions. If acute HIV infection is suspected, consider submitting another specimen to a reference laboratory for HIV-1 RNA. SCREEN REACTIVE - CONFIRMATIO N TO FOLLOW: Possible presence of HIV-1antibo dies, HIV-2 antibodies and/or HIV-1 p24 antigen. Specimen will reflex to the confirmatio n testing that fulfills the Center for Disease Control and Prevention' s HIV diagnostic algorithm. Refer to [facility] Guide for additional information : [email or web address]/EPIL [email or web address]/la [email or web address] x Testing performed by [employer]. 5600A-U [facility] EPILAB Miscellan eous Sendouts Repository Sample Received (09/15/24 10:00 AM) 09/15 N [facility] Infectiou s Disease HIV-1/O/2 Non-Reac tive 2 (12/30/22 2:09 PM) 12/30 N Interpretiv e Data: INTERPRETAT ION: This method is a screening procedure for the detection of HIV p24 Antigen and Antibodies to HIV-1, including Group O, and/or HIV-2. NON-REACTIV E: HIV-1 antigen and HIV-1 / HIV-2 antibodies were not detected. No laboratory evidence of HIV infection. A negative test result does not exclude the possibility of exposure to or infection with HIV. HIV antibodies and/or p24 antigen may be undetectabl e in some stages of the infection and in some clinical conditions. If acute HIV infection is suspected, consider submitting another specimen to a reference laboratory for HIV-1 RNA. SCREEN REACTIVE - CONFIRMATIO N TO FOLLOW: Possible presence of HIV-1antibo dies, HIV-2 antibodies and/or HIV-1 p24 antigen. Specimen will reflex to the confirmatio n testing that fulfills the Center for Disease Control and Prevention' s HIV diagnostic algorithm. Refer to [facility] Guide for additional information : [email or web address]/[email or web address]/EPIL ab/Pages/la [email or web address]_[email or web address] x Testing performed by [employer]. [facility] Miscellan eous Sendouts Repository Sample Received (12/30/22 2:09 PM) 12/30 N [facility] Vital Signs Combined list of inpatient and outpatient Vital Signs from Department of Defense and Veterans Affairs, ranging from 12 months to all on record, depending upon the facility. Vital Sign Value Date Comments Source Systolic Blood Pressure 127 mm[Hg] 08/28/2023 15:59:00 8203R-104 MDG Diastolic Blood Pressure 86 mm[Hg] 08/28/2023 15:59:00 8203R-104 MDG BP Site Right arm 08/28/2023 15:59:00 8203R -104 MDG Peripheral Pulse Rate 83 bpm 08/28/2023 15:59:00 8203R-104 MDG Mean Arterial Pressure, Cuff (Calc) 100 mm[Hg] 08/28/2023 15:59:00 8203R-104 MD G Systolic Blood Pressure 116 mm[Hg] 12/28/2023 17:55:00 8115H-FN-P-82nd [facility] Diastolic Blood Pressure 76 mm[Hg] 12/28/2023 17:55:00 3160Y-RX-K-82nd [facility] Respiratory Rate 16 br/min 12/28/2023 17:55:00 4400E-WN-W-82nd [facility] Peripheral Pulse Rate 75 bpm 12/28/2023 17:55:00 0464F-TZ-D-82nd [facility] Blood Pressure Manual Automatic 12/28/2023 17:55:00 7156N-SE-G-82nd [facility] Mean Arterial Pressure, Cuff (Calc) 89 mm[Hg] 12/28/2023 17:55:00 2471K-EE-K-8 2nd [facility] BP Site Right arm 12/28/2023 17:55:00 0113C -AF-C-82nd [facility] Temperature Oral 36.8 Kelly 12/28/2023 17:55:00 6873D-CC-H-82nd [facility] Temperature Oral 37.3 Kelly 01/04/2024 18:18:00 9247B-KX-I-82nd [facility] Mean Arterial Pressure, Cuff (Calc) 98 mm[Hg] 01/04/2024 18:18:00 2861B-IM-L-8 2nd [facility] Systolic Blood Pressure 127 mm[Hg] 01/04/2024 18:18:00 9817Z-DO-X-82nd [facility] Diastolic Blood Pressure 83 mm[Hg] 01/04/2024 18:18:00 1880D-XA-N-82nd [facility] Peripheral Pulse Rate 71 bpm 01/04/2024 18:18:00 3115Y-CI-Z-82nd [facility] Respiratory Rate 18 br/min 01/04/2024 18:18:00 1571F-ZB-P-82nd [facility] Encounters Combined list of: 1) Encounters from Department of Veterans Affairs facilities going backup to the last 18 months, not all VA inpatient encounters are included; 2) Encounters from the Department of Defense facilities going backup to 280 months. Location Location Details Encounter Type Encounter Number Reason For Visit Attending Provider ADM Date DC Date Status [place] [address]([facility] OUTPATIENT [id number] Notes Entered by: ARMEN MCCONNELL 26 May 2016 1121 ------- ------- ------- ------- -- Strep Prophyl axsis ARMEN MCCONNELL 05/26 Released w/o Limitations [facility] [place] [address]([facility] Ladi Agrawal) [place] [address]([facility], BMT) OUTPATIENT [id number] SUNDEEP GILL 05/27 Released w/o Limitations [facility] [place] [address]([facility] e[facility], BMT) [place] [address] OUTPATIENT [id number] Notes Entered by: ANTHONY BLAIR 04 Jun 2016 0758 ------- ------- ------- ------- -- MARIA ISABEL CHADWICK 06/04 Released w/o Limitations [facility] [place] [address]([facility] Ladi Agrawal) [facility] OUTPATIENT [id number] [place]/ leg pain ADRIANA BLOUNT 10/01 Released with Work/Duty Limitations [facility]( PCM Phy Therapy Cl ) [facility](Or thopedic [facility] ) OUTPATIENT [id number] Notes Entered by: THANIA PARKER 01 Oct 2016 0652 ------- ------- ------- ------- -- arch support nora NAHID SEGAL Obed 10/01 Released with Work/Duty Limitations [facility]( Orthope dic [facility]) [facility] Phy Therapy Cl ) OUTPATIENT [id number] Renteria/ ADRIANA Castañeda 11/24 Released with Work/Duty Limitations [facility]( [facility] Phy Therapy [facility]) [place] [id number](AFN G 104 Med Sq-FM) OUTPATIENT [id number] Notes Entered by: JOSE JOHNSON 17 Sep 2020 1419 ------- ------- ------- ------- -- JOSE BUITRAGO 09/17 Released w/o Limitations [facility] [place] [place] [address](A FNG 104 Med Sq-FM) [place] [address](AFN G 104 Med Sq-FM) OUTPATIENT [id number] Notes Entered by: JOSE JOHNSON 13 Nov 2020 1452 ------- ------- ------- ------- -- JOSE BARRAZA 11/13 [facility]itations [facility] [place] [address](A FNG 104 Med Sq-FM) [place] [address](AFN G 104 Med Sq-FM) OUTPATIENT [id number] Notes Entered by: JOSE JOHNSON 11 Feb 2021 1223 ------- ------- ------- ------- -- JOSE SALAZAR 02/11 Released w/o Limitations [facility] [place] [address](A FNG 104 Med Sq-FM) [place] [address](AFN G 104 Med Sq-FM) OUTPATIENT [id number] Notes Entered by: JOSE JOHNSON 27 Mar 2021 0746 ------- ------- ------- ------- -- SARAH BETH3 JOSE JOHNSON 03/27 Released w/o Limitations [facility] [place] [address](A FNG 104 Med Sq-FM) [place] [address](AFN G 104 Med Sq-FM) OUTPATIENT [id number] Notes Entered by: JOSE JOHNSON 09 Apr 2021 0750 ------- ------- ------- ------- -- JOSE BUITRAGO 04/09 Released w/o Limitations [facility] [place] [address](A FNG 104 Med Sq-FM) [place] [address](AFN G 104 Med Sq-FM) OUTPATIENT [id number] Notes Entered by: JOSE JOHNSON 21 Jun 2021 1137 ------- ------- ------- ------- -- JOSE SALAZAR 06/21 Released w/o Limitations [facility] [place] [address](A FNG 104 Med Sq-FM) [place] [address](AFN G 104 Med Sq-FM) OUTPATIENT [id number] Notes Entered by: MARISSA HAGER 28 Aug 2021 0824 ------- ------- ------- ------- -- Post-ALLYSSA Del Real 08/28 Released w/o Limitations [facility] [place] [address](A FNG 104 Med Sq-FM) [place] [address](AFN G 104 Med Sq-FM) OUTPATIENT [id number] Notes Entered by: RY BARTON O R 14 Aug 2022 0720 ------- ------- ------- ------- -- PHAQ RENA BARTON R 08/14 Released w/o Limitations [facility] [place] [address](A FNG 104 Med Sq-FM) 8203R-104 MDG Between Visit [id number] 02/02 Discharge Disposition: Home or Self Care 8203R-1 04 MDG 8203R-104 MDG Mass Vaccine [id number] 04/19 8203R-1 04 MDG 8203R-104 MDG Care Not Rendered [id number] 09/15 Discharge Disposition: Home or Self Care 8203R-1 04 MDG Procedures Combined list of: 1) Procedures from Department of Veterans Affairs facilities going back up to thelast 18 months, not all VA non-surgical procedures are included; 2) All procedures from the Department of Defense facilities. Procedure Procedure Type Code Date Perfomer Comments Sourc e No data available for this section Ambulatory Pharmacy PHYSICAL THERAPY EVALUATION:LOW COMPLEXITY,REQ: HIST W NO PERS FACT &/COMORB THAT IMPACT PLAN OF CARE;CLIN DECIS MAKING OF LOW COMPLEXITY,TYPI THOMAS,20 MIN ARE SPENT [id number] W THE PATIENT &/FAMILY 11/24/2016 DoD FOOT INSERT, REMOVABLE, MOLDED TO PATIENT MODEL, SILICONE GEL, EACH 10/01/2016 DoD PHYSICAL THERAPY EVALUATION:LOW COMPLEXITY,REQ: HIST W NO PERS FACT &/COMORB THAT IMPACT PLAN OF CARE;CLIN DECIS MAKING OF LOW COMPLEXITY,TYPI THOMAS,20 MIN ARE SPENT [id number] W THE PATIENT &/FAMILY 10/01/2016 DoD Foot insert, removable, molded to patient model, silicone gel, each 10/09/2016 NAHID SEGAL DoD Threshold Audiogram (Pure Tone) Automated Threshold Audiogram (Pure Tone) Automated 0208T 05/28/2016 SUNDEEP GILL [facility] Social History Combined list of available smoking, tobacco, and other social history from Department of Defense and Veterans Affairs facilities. Social History Type Response Date Comment Sour e Sex Representation Female (finding) 09/18/2021 Unknown Organization Tobacco Cigarette use: Never-cigarette user. Other Tobacco use: Never-other tobacco user (not cigarettes). Ambulatory Pharmacy Sexual Orientation Ambula tory Pharmacy Gender identity Ambulator y Pharmacy This section is an empty social history section. [facility] Assessment and Plan Combined list of future care activities from Department of Defense and Veterans Affairs facilities (e.g., assessment and plan notes, appointments, orders, and referrals). Additional future care activities may be listed in the Plan of Care section. Result Assessment and Plan Date Source Assessment and Plan Extracted from:Title : Right knee pain Author: MARIA ISABEL ÁLVAREZ NP Date: 01/04/24 1. R ight knee pain Persistent right knee pain on medial aspect x 4 weeks, improved from initial onset but not resolved with conservative strategies. X-ray on last week unremarkable. Member requesting further imaging. She is due to graduate in 3 days and return home. Sent to radiology for MRI to rule out internal pathology Advised activity modification Ice or heat for comfort Daily stretching and strengthening Gradual progression in pain free manner Temp profile in [facility] RTC if not better in 4 weeks RTC/ER precautions reviewed Medications prescribed after a discussion of risks/benefits/alternatives. Consolidated active outpatient medication list offered to patient ]Mobility Duty Restrictions: No DR/FR. No MR. WWQ. Due for PHA/PHAQ. 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 IMR-Current Preventative screening. None due. Maria Isabel Álvarez, RN, MSN CARDIOLOGY RN- Family Nurse Practitioner [facility] Time spent in patient care, counseling and reviewing chart was approximately 35min. This includes reviewing prior external notes, review of test results, and/or ordering labs or unique tests. Additionally discussed management or interpretation of tests performed. Ordered: MRI Knee w/o Contrast Right Extracted from:Title: R Knee and L Wrist pain seen by IDMT Author: KAREN PAUL IDMT Date: 12/28/23 1. R ight knee pain Knee pain: Chronic and persistent, no worrisome symptoms o f instability, infection, or meniscal pathology, or systemic joint process. Likely mild tendonopathy vs ligamentous injury vs. patellofemoral syndrome. Osteoarthritis wear and tear m ay be contributing factor. Discussed pathophys with patient at length today. Unremarkable knee exam mild symptoms, exacerbated by certain movement. Suggests minor strain to lateral knee with minimal intervention needed at this time. Plan: -- NSAIDs; counseled on risk of GI bleeding and Renal injury with prolonged NSAIDs use - XR R knee weight bearing - Discussed RICE method - Recommended against exercising through pain, but may exercise otherwise - Pt to follow up in one month or earlier if symptoms worsen or d o not subside with medication compliance, to include; sharp acute pain, not able to bear weight, fever - Follow up with PCM may need to consider imaging Preceotor consulted: Gilles Barragan Profile: No Quarters: Not indicated at this time Non-Fly/AUOF/PRP status ER: anaphylaxis, medication reaction, hives, throat closure, worst headache of life, C/P, fever greater than 103.0, SOB, palpitation, vision changes, syncope Pt verbalized understanding of tx plan Maintain adequate hydration by drinking >3L/day and urinating every 2 hrs [facility] Protocols Chapter 1: Orthopedic protocols Pages: 45 - 46 Knee Pain. Green Directive: Routine review by preceptor JACKIE MADISON [phone]. SSgt Precious, [facility], [facility] [place], [place] Ordered: Referral Request 2.0 - DoD 2. P ain of left wrist Wrist pain - Chronic and persistent, no worrisome symptoms for instability, infection, or systemic joint process. Likely Cyst. Osteoarthritis may be contributing to symptoms. N o acute trauma.? N o indication for imaging at this point. Reccomend: -- NSAIDs; counseled on risk of GI bleeding and Renal injury with prolonged NSAIDs use - US L wrist - C onsider Occupational Therapy consult placed for additional stretching and strengthening techniques - Recommended avoiding positions that causes pain - Recommended against exercising through pain, but may exercise otherwise - Pt to follow up in one month or earlier if symptoms worsen - Follow up with PCM may need to consider imaging - Pt agrees with this plan Preceptor consulted: Gilles Barragan Profile: No Quarters: No Non-Fly/AUOF/PRP status Maintain adequate hydration >3L/day and urinating every 2 hours Treatment delivered [facility] Chapter 1: Orthopedic Protocols Page 29- 30 Carpal Tunnel Differentials. Routine review by preceptor JACKIE MADISON [phone]. YELENA Lang, [facility], [facility] [place], [place] Ordered: Referral Request 2.0 - DoD Orders: US Superficial Extremity XR Knee Weight Bearing 3+ Right Addendum by GILLES LATHAM CMA, MD on December 28, 2023 15:02:51 CDT I have reviewed a nd cosigned this note as part of a focused provider performance evaluation.? C osigniture does not endorse medical care rendered, opinions, o r documentation by provider only that note was reviewed for peer review purposes. I did not personally evaluate the patient. Gilles Latham MD, [facility] Staff Family Medicine Physician [address] [facility] [place], [place] 01/16/2025 [id number] [facility] Functional Status Combined list of recent functional and cognitive assessments recorded at [employer] [facility] [place] Functional [place] Measurement (FIM) Scale: 1 = Total Assistance (Subject = 0% +), 2 = Maximal Assistance (Subject = 25% +), 3 = Moderate Assistance (Subject = 50% +), 4 = Minimal Assistance (Subject = 75% +), 5 = Supervision, 6 = Modified [place] (Device), 7 = Complete [place] (Timely, Safely). Assessment Date/Time Source Assessment Type Assessment Skill Assessment Score Assessment Details No data available for this section
--- OUTSIDE RECORDS SUMMARY | 2025-01-16 12:55 | XMS_ITS | Clinical Summary ---
Author Organization [facility] Address [address] [place] [phone] Phone Care Team Providers Care Cloth Handler Name Role Phone Rafa Rush Primary Care Provider + Allergies No known active allergies Medications therapeutic multivitamin tablet Take 1 tablet by mouth daily. Active Family History Relation Status Comments Father Alive Mother Alive Social History Tobacco Use Types Packs/Day Years Used Date Smoking Tobacco: Never Smokeless Tobacco: Never Tobacco Cessation:Counseling Given: Not Answered Alcohol Use Standard Drinks/Week Comments Yes 0 (1 standard drink = 0.6 oz pur e alcohol) Education Answer Date Recorded Are you interested in more education? Not on jeremiah e 03/18/2023 Are you concerned about learning? Not on file 03/18/2023 No 03/18/2023 No 03/18/2023 Digital Access Answer Date Recorded No 03/18/2023 No 03/18/2023 Reliable internet access at home? Not on file 03/18/2023 Device with a working camera? Not on file Comments Unknown Sex and Gender Information Value Date Recorded Sex Assigned at Not on file Legal Sex Female 9:18 AM EDT Gender Identity Not on file Sexual Orientation Not on file Last Filed Vital Signs Vital Sign Reading Time Taken Comments Blood Pressure 117/72 03/30/2023 8:56 AM EDT Pulse 54 03/30/2023 8:56 AM EDT Temperature - - Respiratory Rate - - Oxygen Saturation - - Inhaled Oxygen Concentration - - Weight 62 kg (136 lb 9.6 oz) 03/30/2023 8:56 AM EDT Height 157.5 cm (5' 2 ) 03/30/2023 8:56 AM EDT Body Mass Index 24.98 03/30/2023 8:56 AM EDT Plan of Treatment Health Maintenance Due Date Last Done Comments DEPRESSION SCREENING 2009 HEPATITIS C SCREENING 2015 HIV ONE-TIME SCREENING (18-6 5 YEARS) 2015 PAP SMEAR 2018 Adult Td,Tdap Booster 12/20/2019 12/19/2009 SMOKING STATUS SCREENING (On ce After 26 Yrs) 2023 COVID-19 VACCINE (2023-2 5 season) 2024 HEPATITIS A VACCINES Aged Out No long er eligible based on patient's age to complete this topic HIB VACCINES Aged Out No longer eligi ble based on patient's age to complete this topic MENINGOCOCCAL VACCINES (ACWY) Aged Out No longer eligible based on patient's age to complete this topic MENINGOCOCCAL VACCINES (B) Aged Out N o longer eligible based on patient's age to complete this topic PNEUMOCOCCAL VACCINES (0-49 years) Aged Out No longer eligible based on patient's age to complete this topic Medical Devices Not on file [place] [address] [place] [address] [place] [address] [place] [address] Care Teams Cloth Handler Relationship Specialty Start Date End Date Rafa Rush PA [address] [place] [address] PCP - General Physician Machine Operators 03/18/23 Additional Source Comments The information contained in this document represents components of the legal health record. It is not the complete legal health record.[facility]
== END 2025-01-16 12:45 | disposition home or self-care (01) ==
LOC: HO.HMCH 12:14
PROVIDERS: PCP Internal Medicine; Visit Provider Internal Medicine
DX: Z00.00 Encounter for general adult medical examination without abnormal findings (principal)

== ENCOUNTER → 2025-01-16 12:13 | Outpatient (BNVA) | payer BC, SELFPAY | PROVIDERS: PCP Internal Medicine; Visit Provider Internal Medicine | DX: Z00.00 Encounter for general adult medical examination without abnormal findings (principal); E78.5 Hyperlipidemia, unspecified | CPT/HCPCS: 96127 ==

== ENCOUNTER 2025-01-17 07:31 | Outpatient (REF) | payer BC, SELFPAY ==
--- OUTSIDE RECORDS SUMMARY | 2025-01-17 07:34 | XMS_ITS | Clinical Summary ---
Author Organization [facility] Address [address] [place] [phone] Phone Care Team Providers Care Fishing Vessel Captain Name Role Phone Rafa Rush Primary Care [...] topic Medical Devices Not on file [place] [address] [address] [place] [address] [place] [address] [place] [address] Care Teams Fishing Vessel Captain Relationship Specialty Start Date End Date Rafa Rush PA [address] [place] [address] PCP - General Physician Powder Cutting Operator 03/18/23 Additional Source Comments The information contained in this document represents components of the legal health record. It is not the complete legal health record.[facility]
[2025-01-17 11:48] LABS: Alanine Aminotransferase 29 U/L (0-31); Albumin Level 4.4 g/dL (3.5-5.0); Alkaline Phosphatase 63 U/L (39-117); Anion Gap 10 (12-20); Aspartate Amino Transferase 24 U/L (5-31); Blood Urea Nitrogen 14 mg/dL (9-16); Calcium 8.7 mg/dL (8.4-10.2); Carbon Dioxide 26 mmol/L (22-29); Chloride 108 mmol/L (96-108); Cholesterol 151 mg/dL (<200); Estimated Glomerular Filt Rate > 60; HDL Cholesterol 50 mg/dL (>40); Potassium 4.3 mmol/L (3.3-5.1); Sodium 140 mmol/L (135-145); Total Protein 6.8 g/dL (6.5-8.0); Triglycerides 50 mg/dL (<150)
== END 2025-01-17 07:32 | disposition home or self-care (01) ==
LOC: HO.WFDLDS 07:31
PROVIDERS: Visit Provider Internal Medicine
DX: Z00.00 Encounter for general adult medical examination without abnormal findings (principal); E78.5 Hyperlipidemia, unspecified
CPT/HCPCS: 36415; 80053; 80061